=== PATIENT | male | born 1990 | race Caucasian/White ===

== ENCOUNTER 2021-07-03 08:56 | Outpatient (CLI) | payer OTHER, SELFPAY ==
--- NOTE | 2021-07-03 09:10 | XR_ITS ---
WS: [id number] XR knee RT 3V* [id number] REASON FOR EXAM: ARTHRITIS/DJD FINDINGS: Joint spaces of the right knee are intact and relatively well-preserved. No subchondral or other focal bone abnormality. No soft tissue abnormality. XR/XR knee RT 3V* [id number] IMPRESSION: No significant abnormality of the right knee.
== END 2021-07-03 08:57 | disposition home or self-care (01) ==
LOC: RAD 09:03
PROVIDERS: Visit Provider Chiropractor
DX: M17.11 Unilateral primary osteoarthritis, right knee (principal)
CPT/HCPCS: 73562

== ENCOUNTER 2022-08-26 06:00 | Outpatient (RCR) | payer OTHER, SELFPAY | END 2022-09-25 23:59 | disposition home or self-care (01) | LOC: TPT 06:00 | PROVIDERS: Visit Provider Family Medicine | DX: M54.50 Low back pain, unspecified (principal) | CPT/HCPCS: 97110; 97162 ==

== ENCOUNTER 2022-09-26 06:00 | Outpatient (RCR) | payer OTHER, SELFPAY | END 2022-10-26 23:59 | disposition home or self-care (01) | LOC: TPT 06:00 | PROVIDERS: Visit Provider Family Medicine | DX: M54.50 Low back pain, unspecified (principal) | CPT/HCPCS: 97110 ==

== ENCOUNTER 2022-10-27 06:00 | Outpatient (RCR) | payer OTHER, SELFPAY | END 2022-11-23 16:42 | disposition home or self-care (01) | LOC: TPT 06:00 | PROVIDERS: Visit Provider Family Medicine | DX: M54.50 Low back pain, unspecified (principal) | CPT/HCPCS: 97110 ==

== ENCOUNTER 2022-11-09 06:19 | Outpatient (CLI) | payer OTHER, SELFPAY | END 2022-11-09 06:20 | disposition home or self-care (01) | LOC: SLEEP 11-10 06:20 | PROVIDERS: Visit Provider Family Medicine | DX: G47.30 Sleep apnea, unspecified (principal) | CPT/HCPCS: 95810 ==

== ENCOUNTER → 2025-05-13 08:58 | Outpatient (BNVA) | payer OTHER, SELFPAY | PROVIDERS: Referring Provider Family Medicine; Visit Provider Specialist | DX: G25.3 Myoclonus (principal); M54.12 Radiculopathy, cervical region; R20.0 Anesthesia of skin | CPT/HCPCS: 99204 ==

== ENCOUNTER 2025-05-28 06:47 | Outpatient (CLI) | payer OTHER, SELFPAY ==
--- NOTE | 2025-05-28 07:15 | MR_ITS ---
WS: [id number] MRI CERVICAL SPINE NONCONTRAST TECHNIQUE: Sagittal T1, T2 and STIR imaging. Axial T2, gradient, and fiesta imaging. CLINICAL INFORMATION: G25.3 - Myoclonus COMPARISON: None. FINDINGS: Straightening of the normal cervical lordosis. Mild disc bulging C3-C5. Cord signal is normal. No high-grade central canal stenosis. Cord signal is normal. C2-C3: Normal. C3-C4: Mild disc bulging. Mild LEFT foraminal narrowing. Mild facet arthropathy. C4-C5: Mild disc bulging with endplate ridging. Mild to moderate LEFT and mild RIGHT RIGHT bony foraminal narrowing. Mild facet arthropathy. C5-C6: Mild disc bulging. Moderate facet arthropathy. Spinal canal and foramen are patent. C6-C7: Normal. C7-T1: Normal. Visualized brain stem structures: Normal. Prevertebral soft tissues: Normal. Tiny central protrusion partially visualized in the upper thoracic spine at T4- 5. MR/MR cervical spin wo con* [id number] IMPRESSION: 1. Straightening of the normal cervical lordosis. Cord signal is normal. 2. Mild disc bulging at C3-C5. Spinal canal is patent. 3. Mild to moderate LEFT C4-5 bony foraminal narrowing. 4. Moderate facet arthropathy C5-C6. 5. Tiny central protrusion partially visualized in the upper thoracic spine at T4-5.
== END 2025-05-28 06:48 | disposition home or self-care (01) ==
LOC: RAD 06:48
PROVIDERS: PCP Family Medicine; Visit Provider Specialist
DX: M50.31 Other cervical disc degeneration, high cervical region (principal); G25.3 Myoclonus; M50.321 Other cervical disc degeneration at C4-C5 level; M48.02 Spinal stenosis, cervical region; M47.812 Spondylosis without myelopathy or radiculopathy, cervical region
CPT/HCPCS: 72141

== ENCOUNTER → 2025-07-09 15:16 | Outpatient (BNVA) | payer OTHER, SELFPAY | PROVIDERS: PCP Family Medicine; Referring Provider Specialist; Visit Provider Specialist | DX: R20.0 Anesthesia of skin (principal); M54.12 Radiculopathy, cervical region; G25.3 Myoclonus | CPT/HCPCS: 95911 ==

== ENCOUNTER → 2025-08-12 08:37 | Outpatient (BNVA) | payer OTHER, SELFPAY | PROVIDERS: PCP Family Medicine; Referring Provider Family Medicine; Visit Provider Specialist | DX: G25.3 Myoclonus (principal); R20.0 Anesthesia of skin | CPT/HCPCS: 99214 ==

== ENCOUNTER 2025-09-23 09:57 | Outpatient (RCR) | payer OTHER, SELFPAY | END 2025-09-25 23:59 | disposition home or self-care (01) | LOC: TPT 09:57 | PROVIDERS: Visit Provider Nurse Practitioner Family | DX: G54.0 Brachial plexus disorders (principal) | CPT/HCPCS: 97110; 97161; 97530 ==